=== PATIENT | female | born 1940 | race Two or more races ===

== ENCOUNTER 2018-02-24 08:32 | Outpatient (CLI) | payer OTHER ==
[~2018-02-24 08:32] MED LIST: CLEOCIN HCL300 MG PO; EVISTA60 MG; FOSAMAX5 MG; MEDROLPACK PO; NEURONTIN300 MG PO; PREDNISOLONE5 G1; SYNTHROID50 MCG; ULTRAM50 MG PO
== END 2018-02-24 08:37 | disposition home or self-care (01) ==
LOC: NUCLEAR 08:32
DX: C50.512 Malignant neoplasm of lower-outer quadrant of left female breast (principal); Z85.3 Personal history of malignant neoplasm of breast; D51.3 Other dietary vitamin B12 deficiency anemia; M81.0 Age-related osteoporosis without current pathological fracture; M05.29 Rheumatoid vasculitis with rheumatoid arthritis of multiple sites; I10 Essential (primary) hypertension; R97.8 Other abnormal tumor markers; R97.0 Elevated carcinoembryonic antigen [CEA]; E03.8 Other specified hypothyroidism; E78.2 Mixed hyperlipidemia; H25.13 Age-related nuclear cataract, bilateral; K21.9 Gastro-esophageal reflux disease without esophagitis; M15.0 Primary generalized (osteo)arthritis; I73.9 Peripheral vascular disease, unspecified
CPT/HCPCS: 78816; A9552

== ENCOUNTER 2018-05-10 14:30 | Emergency (ER) | payer OTHER ==
[~2018-05-10] VITALS: Ht 160 cm; Wt 65.8 kg
[2018-05-10] MEDS ORDERED: AZITHROMYCIN250 MG PO (14:50)
[2018-05-10] MEDS ORDERED: BENZONATATE200 M1 PO (14:51)
[2018-05-10] MEDS ORDERED: COZAAR50 MG PO (14:51)
== END 2018-05-10 19:16 | disposition home or self-care (01) ==
LOC: ER 14:30
DX: R14.3 Flatulence (principal); R10.84 Generalized abdominal pain; R53.1 Weakness; E86.0 Dehydration

== ENCOUNTER 2018-08-10 09:33 | Emergency (ER) | payer OTHER ==
[~2018-08-10] VITALS: Ht 160 cm; Wt 65.8 kg
[~2018-08-10 09:33] MED LIST changes: +AZITHROMYCIN250 MG PO; +BENZONATATE200 M1 PO; +COZAAR50 MG PO
== END 2018-08-10 11:17 | disposition home or self-care (01) ==
LOC: ER 09:33
DX: H57.12 Ocular pain, left eye (principal)